=== PATIENT | female | born 1990 | race Caucasian/White ===

== ENCOUNTER 2024-05-08 18:08 | Inpatient (IN) | payer BC ==
[2024-05-08] MEDS ORDERED: fentaNYL 50 mcg/mL 1 mL Vial SLOW IVP PRN (19:46)
[2024-05-08] MEDS ORDERED: Lidocaine 1% (PF) 30 ML VIAL SC PRN (19:46)
[2024-05-08] MEDS ORDERED: Promethazine HCl 25 MG/ML VIAL IM PRN (19:46)
[2024-05-08] MEDS ORDERED: Zolpidem Tartrate 5 MG TAB PO PRN (19:46)
[2024-05-08] MEDS ORDERED: Ibuprofen 800 MG TAB PO PRN (19:46)
[2024-05-08] MEDS ORDERED: Calcium Gluc 4.6 MEQ/10 ML (100 MG/ML) SLOW IVP PRN (19:46)
[2024-05-08] MEDS ORDERED: Labetalol HCl 100 MG/20 ML VIAL SLOW IVP PRN ×2 (19:46)
[2024-05-08] MEDS ORDERED: Oxytocin 30 units/NS 500 ML 500 ML IV SCH (19:46)
[2024-05-08] MEDS ORDERED: Tranexamic Acid 1,000 MG/10 ML VIAL IVP PRN (19:46)
[2024-05-08] MEDS ORDERED: Diphenoxylate HCl/Atropine Tablet PO PRN (19:46)
[2024-05-08] MEDS ORDERED: Ondansetron PF 4 MG/2 ML Vial IVP PRN (19:46)
[2024-05-08] MEDS ORDERED: Lorazepam 2 MG/ML VIAL SLOW IVP PRN (19:46)
[2024-05-08] MEDS ORDERED: Carboprost 250 MCG/ML AMP IM PRN (19:46)
[2024-05-08] MEDS ORDERED: Acetaminophen 500 MG TAB PO PRN (19:46)
[2024-05-08] MEDS ORDERED: HYDROcodone/Acetaminophen 5/325 mg Tablet PO PRN ×2 (19:46)
[2024-05-08] MEDS ORDERED: Misoprostol 200 MCG TAB PR PRN (19:46)
[2024-05-08 20:44] VITALS: BMI 44.1
[2024-05-08] MEDS: Lactated Ringer's 1,000 ML IV SCH (21:00)
[2024-05-08] MEDS: Misoprostol 100 MCG TAB VAG SCH (21:27)
[2024-05-08 21:46] LABS: Hematocrit 40.9 % (34.9-44.5); Hemoglobin 14.6 g/dL (12.0-15.5); Mean Corpuscular HGB CONC 35.7 g/dL (32.0-36.0); Mean Corpuscular Hemoglobin 32.1 pg (27.0-33.0); Mean Corpuscular Volume 89.9 fL (81.6-98.3); Mean Platelet Volume 11.4 fL (7.4-10.4); Platelet Count 212 10x3/uL (150-450); RBC Distribution Width 13.1 % (11.5-14.5); Red Blood Cell (RBC) Count 4.55 10x6/uL (3.90-5.03); White Blood Cell (WBC) Count 11.12 10x3/uL (3.5-10.5)
[2024-05-08 22:01] LABS: ALT (SGPT) 27 U/L (Less than 34); AST (SGOT) 24 U/L (11-34); Albumin 3.1 g/dL (3.1-4.5); Alkaline Phosphatase 112 U/L (40-110); Anion Gap 16 mmol/L (10-20); BUN (Urea Nitrogen) 7 mg/dL (7.0-18.7); Bilirubin, Total 0.4 mg/dL (0.3-1.2); Calc. Creatinine Clearance 242 mL/min (70-130); Calcium 9.4 mg/dL (7.8-10.44); Carbon Dioxide 20 mmol/L (22-29); Chloride 108 mmol/L (98-107); Estimated GFR 121; Globulin 3.2 g/dL (2.4-3.5); Glucose 79 mg/dL (70-105); Protein, Total 6.3 g/dL (6.0-8.3); Sodium 140 mmol/L (136-145)
[2024-05-08 22:21] LABS: HBsAg Index 0.31 S/CO (0-0.99); Hep B Surf Ag - L&D Non-Reactive S/CO (NonReactive)
[2024-05-08 22:23] LABS: Syphilis Antibody Nonreactive (Nonreactive); Syphilis Antibody Index 0.03 S/CO (<1.00 Non-Reactive)
[2024-05-08 23:40] LABS: Creatinine, Urine 160.89 mg/dL (16.00-327.00)
[2024-05-08] MEDS ORDERED: Penicillin G Potassium 5 MILL.UNITS in Sodium Chloride 0.9% 100 ML IVPB SCH (23:59)
[2024-05-09] MEDS ORDERED: Penicillin G 2.5 MILL.units 2.5 MILL.UNITS in Premix 1 BAG IVPB SCH (04:00)
[2024-05-09] MEDS: hydrALAZINE 20 MG/ML VIAL SLOW IVP PRN ×2 (05:30→07:49)
[2024-05-09] MEDS: Magnesium Sulfate 20 gm/500 ml 20 GM/500 ML BAG ONE (07:48)
[2024-05-09] MEDS: Labetalol HCl 100 MG/20 ML VIAL SLOW IVP PRN (08:30)
[2024-05-09] MEDS: Oxytocin 30 units/NS 500 ML 500 ML IV SCH (09:25)
[2024-05-09] MEDS: Penicillin G Potassium 5 MILL.UNITS in Sodium Chloride 0.9% 100 ML IVPB SCH (09:28)
[2024-05-09] MEDS ORDERED: Calcium Gluc 4.6 MEQ/10 ML (100 MG/ML) IV PRN (10:30)
[2024-05-09] MEDS: fentaNYL/Ropivacaine Epidural 100 ML ONE (10:49)
[2024-05-09] MEDS ORDERED: Promethazine HCl 25 MG/ML VIAL IM PRN ×2 (11:09→17:28)
[2024-05-09] MEDS ORDERED: Ondansetron PF 4 MG/2 ML Vial IVP PRN ×3 (11:09→17:28)
[2024-05-09] MEDS ORDERED: Naloxone HCl 0.4 mg/ml Vial IVP PRN ×4 (11:09→17:28)
[2024-05-09] MEDS ORDERED: diphenhydrAMINE 50 MG/ML VIAL IVP PRN ×2 (11:09→17:28)
[2024-05-09] MEDS ORDERED: Moisturizing Cream (Eucerin) 113 GM JAR TOP PRN ×2 (11:09→17:28)
[2024-05-09] MEDS ORDERED: Lactated Ringer's 500 ML IV PRN (11:09)
[2024-05-09] MEDS ORDERED: Communication Order-Pharmacy FS SCH ×2 (11:15→17:30)
[2024-05-09] MEDS ORDERED: fentaNYL 2 mcg/Ropivacaine 0.2% Epidural 100 ML CADD EPIDURAL SCH (11:15)
[2024-05-09] MEDS: ePHEDrine Sulfate 50 MG/10 ML VIAL SLOW IVP PRN (11:16)
[2024-05-09] MEDS: Penicillin G 2.5 MILL.units 2.5 MILL.UNITS in Premix 1 BAG IVPB SCH (14:29)
[2024-05-09] MEDS: Magnesium Sulfate 20 gm/500 ml 4 GM/100 ML BAG IVPB ONE (14:30)
[2024-05-09] MEDS ORDERED: fentaNYL 50 mcg/mL 1 mL Vial SLOW IVP PRN (17:28)
[2024-05-09] MEDS ORDERED: Meperidine HCl/PF 25 MG (1 mL) VIAL SLOW IVP PRN (17:28)
[2024-05-09] MEDS ORDERED: Naloxone HCl 0.4 mg/ml Vial IV PRN (17:28)
[2024-05-09] MEDS: Diphenoxylate HCl/Atropine Tablet PO PRN (17:31)
[2024-05-09] MEDS: Ketorolac Tromethamine 30 MG (1 mL) VIAL IVP SCH (18:01)
[2024-05-09] MEDS: Azithromycin 500 MG VIAL ONE (18:15)
[2024-05-09] MEDS: Oxytocin 10 UNITS/ML VIAL ONE (18:16)
[2024-05-09] MEDS: Morphine PF 10 MG/10 ML VIAL ONE (18:16)
[2024-05-09] MEDS: Ondansetron PF 4 MG/2 ML Vial ONE (18:16)
[2024-05-09] MEDS: CEFAZOLIN 2 GM VIAL ONE (18:16)
[2024-05-09] MEDS: PHENYLEPHRINE-NS 100 MCG/ML 10 ML SYRINGE ONE ×2 (18:16)
[2024-05-09] MEDS: Dexamethasone 10 MG/ML VIAL ONE (18:16)
[2024-05-09] MEDS: Bupivacaine PF 0.5% 30 ML VIAL ONE (18:16)
[2024-05-09] MEDS: Erythromycin Base 0.5% Oint 1 GM TUBE ONE (18:17)
[2024-05-09] MEDS: Hepatitis B Vaccine 10 MCG/0.5 ML SYR ONE (18:17)
[2024-05-09] MEDS: Phytonadione Neonatal 1 MG/0.5 ML AMP ONE (18:17)
[2024-05-09] MEDS: Magnesium Sulfate 20 gm/500 ml 20 GM/500 ML BAG IVPB PRN (23:37)
[2024-05-10 04:48] LABS: Hematocrit 33.6 % (34.9-44.5); Hemoglobin 11.8 g/dL (12.0-15.5); Mean Corpuscular HGB CONC 35.1 g/dL (32.0-36.0); Mean Corpuscular Hemoglobin 31.8 pg (27.0-33.0); Mean Corpuscular Volume 90.6 fL (81.6-98.3); Mean Platelet Volume 11.1 fL (7.4-10.4); Platelet Count 187 10x3/uL (150-450); RBC Distribution Width 13.2 % (11.5-14.5); Red Blood Cell (RBC) Count 3.71 10x6/uL (3.90-5.03); White Blood Cell (WBC) Count 14.48 10x3/uL (3.5-10.5)
[2024-05-10 05:10] LABS: ALT (SGPT) 26 U/L (Less than 34); AST (SGOT) 30 U/L (11-34); Albumin 2.6 g/dL (3.1-4.5); Alkaline Phosphatase 86 U/L (40-110); Anion Gap 13 mmol/L (10-20); BUN (Urea Nitrogen) 6 mg/dL (7.0-18.7); Bilirubin, Total 0.4 mg/dL (0.3-1.2); Calc. Creatinine Clearance 271 mL/min (70-130); Calcium 7.7 mg/dL (7.8-10.44); Carbon Dioxide 18 mmol/L (22-29); Chloride 110 mmol/L (98-107); Critical Call Chemistry NUR.SMK@0508; Estimated GFR 125; Globulin 3.1 g/dL (2.4-3.5); Glucose 132 mg/dL (70-105); Magnesium 5.1 mg/dL (1.6-2.6); Potassium 4.7 mmol/L (3.5-5.1); Protein, Total 5.7 g/dL (6.0-8.3); Sodium 136 mmol/L (136-145)
[2024-05-10] MEDS ORDERED: Bupivacaine/Epinephrine 0.25% 30 ML VIAL ONE (07:00)
[2024-05-10] MEDS ORDERED: Bupivacaine PF 0.5% 30 ML VIAL ONE (07:00)
[2024-05-10] MEDS ORDERED: ePHEDrine Sulfate 50 MG/10 ML VIAL ONE (07:00)
[2024-05-10] MEDS: Ketorolac Tromethamine 30 MG (1 mL) VIAL IVP PRN (12:35)
[2024-05-10] MEDS ORDERED: diphenhydrAMINE 25 MG CAP PO PRN (18:06)
[2024-05-10] MEDS ORDERED: Simethicone Chewable 80 MG TAB PO PRN (18:06)
[2024-05-10] MEDS ORDERED: Acetaminophen 325 MG TAB PO PRN (18:06)
[2024-05-10] MEDS ORDERED: Lanolin Ointment 7 GM TUBE TOP PRN (18:06)
[2024-05-10] MEDS ORDERED: HYDROcodone/Acetaminophen 5/325 mg Tablet PO PRN ×2 (18:06)
[2024-05-10] MEDS ORDERED: Boostrix 0.5 ML (Tdap) VIAL (>/=7 yrs of age) IM ONE (18:06)
[2024-05-10] MEDS ORDERED: hydrALAZINE 20 MG/ML VIAL SLOW IVP PRN (18:06)
[2024-05-10] MEDS ORDERED: Bisacodyl 10 MG SUPP PR PRN (18:06)
[2024-05-10] MEDS ORDERED: Misoprostol 200 MCG TAB PR PRN (18:06)
[2024-05-10] MEDS: Acetaminophen 325 MG TAB PO PRN (18:11)
[2024-05-10] MEDS ORDERED: Oxytocin 30 units/NS 500 ML 500 ML IV SCH (18:15)
[2024-05-10] MEDS: Ferrous Sulfate 325 MG TAB PO SCH (21:36)
[2024-05-10] MEDS: Ibuprofen 800 MG TAB PO SCH (21:36)
[2024-05-10] MEDS: Docusate 100 MG CAP PO SCH (21:36)
[2024-05-11 04:59] LABS: Hematocrit 33.1 % (34.9-44.5); Hemoglobin 11.6 g/dL (12.0-15.5); Mean Corpuscular Volume 91.4 fL (81.6-98.3); Mean Platelet Volume 10.7 fL (7.4-10.4); Platelet Count 194 10x3/uL (150-450); RBC Distribution Width 13.6 % (11.5-14.5); Red Blood Cell (RBC) Count 3.62 10x6/uL (3.90-5.03); White Blood Cell (WBC) Count 10.31 10x3/uL (3.5-10.5)
[2024-05-11] MEDS: Prenatal Vitamin 1 TAB PO SCH (08:11)
[2024-05-11 09:16] VITALS: TEMP 98.5
[2024-05-11] MEDS ORDERED: NIFEdipine XL 30 MG ER.TAB PO SCH (14:30)
[2024-05-11 14:32] VITALS: BP 143/89
[2024-05-11] MEDS: NIFEdipine XL 30 MG ER.TAB PO SCH (14:32)
[2024-05-12 15:47] VITALS: BMI 44.1
== END 2024-05-11 17:00 | disposition home or self-care (01) | DRG 788 ==
LOC: OBSVTOIN 18:08 → CSHLD 18:08 → CSHPP 05-10 17:40
PROVIDERS: ADMIT Obstetrics & Gynecology; ATTEND Obstetrics & Gynecology
PROC: 10D00Z1 Extraction of Products of Conception, Low, Open Approach (ICD-10-PCS; principal; 2024-05-09)
PROC: 3E0S3BZ Introduction of Anesthetic Agent into Epidural Space, Percutaneous Approach (ICD-10-PCS; 2024-05-09)
DX: O14.14 Severe pre-eclampsia complicating childbirth (principal); Z3A.38 38 weeks gestation of pregnancy; Z37.0 Single live birth; O76 Abnormality in fetal heart rate and rhythm complicating labor and delivery; O61.9 Failed induction of labor, unspecified; O62.2 Other uterine inertia
CPT/HCPCS: 36415; 51702; 80053; 82570; 83735; 84156; 85027; 86780; 86850; 86900; 86901; 87340; J0360; J0665; J1100; J1885; J2274; J2405; J2540; J2590; J3475; J7120